=== PATIENT | female | born 1975 | race Hispanic/Latino ===

== ENCOUNTER 2018-04-11 09:14 | Day surgery (SDC) | payer BC ==
[2018-04-11] MEDS ORDERED: NACL 0.9% 1000 ML 1,000 ML IV SCH (10:00)
[2018-04-11] MEDS ORDERED: VERSED ONE (11:07)
[2018-04-11] MEDS ORDERED: DIPRIVAN 10 MG/ML IV ONE ×3 (11:07→11:44)
--- NOTE | 2018-04-11 11:13 | Anesthesia Consultation ---
Anesthesia Consult and Med Hx Date of service: 04/11/18 - Airway Anesthetic Teeth Evaluation: Good ROM Head & Neck: Adequate Mental/Hyoid Distance: Adequate Mallampati Class: Class II Intubation Access Assessment: Probably Good - Pre-Operative Health Status ASA Pre-Surgery Classification: ASA2 Proposed Anesthetic Plan: MAC - Pulmonary Hx Smoking: Yes (current smoker) - Central Nervous System CVA: Yes Hx Back Pain: Yes Hx Psychiatric Problems: Yes - Gastrointestinal Hx Ulcer: Yes (ulcerative colitis) - Other Systems Hx Cancer: Yes
--- NOTE | 2018-04-11 11:13 | Anesthesia Day of Surgery ---
Anesthesia Day of Surgery - Day of Surgery Patient Examined: Yes Patient H&P Reviewed: Yes Patient is NPO: Yes
[2018-04-11] MEDS ORDERED: WATER FOR IRRIG STERILE IR ONE (11:14)
[2018-04-11] MEDS ORDERED: XYLOCAINE 2% UROJET ONE (11:39)
[2018-04-11] MEDS ORDERED: XYLOCAINE 2% UROJET UR ONE (11:44)
--- NOTE | 2018-04-11 11:56 | Procedure Note ---
Date of procedure: 04/11/18 Pre-op diagnosis: Hematochezia Post-op diagnosis: other (Hematochezia secondary to Moderate, Internal Hemorrhoid (s/p Banding x 3)/ Moderate,Diverticular disease (most pronounced in the proximal Colon)/ Two,Small,Descending Colon Polyps (removed by cold biopsy)/ Normal Ileal and Colon Mucosa)
--- NOTE | 2018-04-11 12:42 | History and Physical Report ---
HISTORY OF PRESENT ILLNESS: The patient is a 42-year-old white female who has a prior history of diverticular disease and gastric ulcer, which appears to have healed, but lately she has been having some lower GI bleeding for which she has been sent for further evaluation. She also has been noted to have prior history of diverticular disease and hemorrhoids, which have flares. Because she has some associated abdominal pain, she needs to have a colonoscopy done for any associated colitis. ALLERGIES: She has a history of ALLERGY TO PENICILLIN and NSAIDs. MEDICATIONS: She is on multiple medications including oxybutynin, Neurontin, amitriptyline, Lipitor, Ambien, Medicine for migraine, and Xanax. SOCIAL HISTORY: She denies history of smoking, had been a smoker in the past. No alcohol use. No flu shot. PHYSICAL EXAMINATION: VITAL SIGNS: She is afebrile, blood pressure 139/88, pulse is 103, height is 5 feet 1 inch, weight is 180. NECK: HEENT exam shows no JVD. LUNGS: Clear to auscultation, some reduced breath sounds. CARDIOVASCULAR: Examination is normal. ABDOMEN: Shows some mid abdominal and left lower quadrant tenderness. Bowel sounds are present. EXTREMITIES: No pedal edema. NEUROLOGIC: Neurologically, the patient is otherwise alert and oriented. ASSESSMENT: Lower gastrointestinal bleeding, abdominal pain, left-sided, possible associated colitis, history of diverticular disease, history of gastric ulcer, history of migraines and anxiety disorder. PLAN: Plan is to do a colonoscopy and possible flex sig with banding to be done at [facility] on 04/11/2018. JOB# [id number] BERNICE/CHUY LANDAVERDE
[2018-04-11 12:53] VITALS: BP 118/70
--- NOTE | 2018-04-11 13:51 | Operative Report ---
PROCEDURE: Flexible sigmoidoscopy with banding x3. INDICATIONS: This is a 42-year-old white female who had a colonoscopy done because of hematochezia. Colonoscopy showed presence of moderate internal hemorrhoid, which may have been the cause of the patient's hematochezia. In addition, she was noted to have moderate diverticular disease, most pronounced in the right colon and 2 small descending colon polyps. She also was noted to have normal ileal and colonic mucosa. No evidence of colitis. Flexible sigmoidoscopy was done after getting informed consent using the EGD scope to which the banding apparatus was mounted. It was done with MAC anesthesia. Instrument was inserted. After that, a rectal canal injected, had a lidocaine applied to it, through a syringe. No needle was used. The instrument was then passed through the rectum and retroverted and 3 of the largest hemorrhoids were suctioned into the suction channel above the dentate line and 1 band was applied to each of these three large internal hemorrhoids. The photodocumentation was obtained. The scope was withdrawn. There was no bleeding associated with the procedure. No complications associated with the procedure. After the procedure, some additional lidocaine was applied to the rectal canal. ASSESSMENT: Hematochezia secondary to moderate internal hemorrhoids, status post banding x 3. The patient will be asked to take some Sitz baths, avoid aspirin and aspirin-related products for the next few days. Also, use Anusol-HC suppository and some mineral oil if needed and avoid aspirin and aspirin-related products for the next 4-5 days and follow up in the office in 1-2 weeks' time. RNKarma was in the room throughout the entirety of the procedure. The patient will also be given some analgesics if needed. JOB# [id number] BERNICE/CHUY
--- NOTE | 2018-04-11 13:56 | Operative Report ---
PROCEDURE: Colonoscopy with biopsy. INDICATIONS: A 42-year-old white female who has been having hematochezia. She has a prior history of breast cancer involving the right breast. Colonoscopy was done and she also had some associated abdominal pain. She in addition has a prior history of hysterectomy. Colonoscopy was done to make sure that there was any significant lower GI pathology accounting for the lower GI bleeding. DESCRIPTION OF PROCEDURE: Procedure was done after getting informed consent with MAC anesthesia. Initial rectal exam was unremarkable. Instrument was passed through the rectum onto the cecum, which was identified with ileocecal valve and the appendiceal orifice. Visualization was fair. The terminal ileum was intubated showed normal mucosa. Cecum was identified with ileocecal valve and appendiceal orifice. There was moderate and some deep diverticular disease noted in the proximal colon and few scattered in the transverse and the left colon. In the descending colon, there were two small polyps noted, which may have been hyperplastic probably about 7 mm in diameter that were removed by cold biopsy. There was minimal bleeding from the biopsy site. The remaining part of the left colon showed a few scattered diverticula and no other pathology and the rectum showed moderate internal hemorrhoid, which may have been the cause of the patient's hematochezia. ASSESSMENT: Hematochezia secondary to moderate internal hemorrhoids. Two small descending colon polyps, possibly hyperplastic, removed by cold biopsy, associated with minor bleeding. Moderate diverticular disease scattered throughout the colon, most pronounced in the proximal colon where some were very deep and normal ileal mucosa and normal colon mucosa. PLAN: To encourage the patient to take fiber supplements and also have the patient to avoid aspirin and aspirin-related products for the next few days. Follow up in the office in 1-2 weeks' time. Since the patient's hematochezia was secondary to moderate internal hemorrhoid, flex sig with banding will also be done for treatment of that condition. RN, Karma Hernandez was in the room throughout the entirety of the procedure. JOB# [id number] BERNICE/CHUY
== END 2018-04-11 12:40 | disposition home or self-care (01) ==
LOC: GIO 09:14
DX: K63.5 Polyp of colon (principal); K63.89 Other specified diseases of intestine; K57.30 Diverticulosis of large intestine without perforation or abscess without bleeding; K92.1 Melena; K64.8 Other hemorrhoids; F17.210 Nicotine dependence, cigarettes, uncomplicated; Z79.899 Other long term (current) drug therapy; E78.00 Pure hypercholesterolemia, unspecified; Z85.3 Personal history of malignant neoplasm of breast; Z90.49 Acquired absence of other specified parts of digestive tract; Z98.890 Other specified postprocedural states; Z88.0 Allergy status to penicillin; Z90.710 Acquired absence of both cervix and uterus; Z88.8 Allergy status to other drugs, medicaments and biological substances; Z86.73 Personal history of transient ischemic attack (TIA), and cerebral infarction without residual deficits
CPT/HCPCS: 45380; 88305; J2250; J2704; J7030